=== PATIENT | male | born 1955 | race Caucasian/White ===

== ENCOUNTER 2023-12-06 10:00 | Outpatient (RCR) | payer BC, SELFPAY | END 2023-12-09 09:27 | disposition home or self-care (01) | PROVIDERS: Visit Provider Student in an Organized Health Care Education/Training Program | DX: M16.12 Unilateral primary osteoarthritis, left hip (principal); M25.552 Pain in left hip; Z74.09 Other reduced mobility; Z51.89 Encounter for other specified aftercare | CPT/HCPCS: 97110; 97140; 97161 ==